=== PATIENT | male | born 1965 | race Caucasian/White ===

== ENCOUNTER 2022-02-02 09:48 | Day surgery (SDC) | payer BC ==
[~2022-02-02 09:48] MED LIST: Lactated Ringers 1,000 ML IV SCH; Lidocaine 1%/Sod Bicarbonate in NS 8.4% 1 ML Syringe IDERM PRN; Sodium Chloride 0.9% 10 ML Syringe FLUSH PRN; Sodium Chloride 0.9% 10 ML Syringe FLUSH SCH
[2022-02-02] MEDS ORDERED: fentaNYL 100 MCG/2 ML SDV ONE (10:37)
[2022-02-02] MEDS ORDERED: Propofol 200 MG/20 ML SDV ONE ×2 (10:38→11:01)
[2022-02-02] MEDS ORDERED: Lidocaine 1% 6 ML ONE (11:12)
== END 2022-02-02 12:06 | disposition home or self-care (01) ==
LOC: JD.SDS 09:48
PROVIDERS: ATTEND Surgery
DX: Z12.11 Encounter for screening for malignant neoplasm of colon (principal); D12.5 Benign neoplasm of sigmoid colon; K57.30 Diverticulosis of large intestine without perforation or abscess without bleeding; G47.33 Obstructive sleep apnea (adult) (pediatric); I10 Essential (primary) hypertension; E78.00 Pure hypercholesterolemia, unspecified; E78.9 Disorder of lipoprotein metabolism, unspecified; E66.9 Obesity, unspecified; Z91.048 Other nonmedicinal substance allergy status; Z68.30 Body mass index [BMI] 30.0-30.9, adult; Z79.899 Other long term (current) drug therapy; Z87.891 Personal history of nicotine dependence
CPT/HCPCS: 45385; J2704; J3010; J7120; 00812